=== PATIENT | female | born 1975 | race Caucasian/White ===

== ENCOUNTER 2024-04-16 15:48 | Outpatient (CLI) | payer MEDICAID, SELFPAY ==
--- NOTE | 2024-04-16 08:52 | DI.RAD_ITS ---
Exam(s) XR KNEE LT 4V AP,LAT,SEBASTIAN,PAT EXAM: XR KNEE LT 4V AP,LAT,SEBASTIAN,PAT CLINICAL HISTORY: left knee pain. TECHNIQUE: 2D digital imaging was performed. COMPARISON: CR DX Knee 3 View Left with Standing View - [id number] from 02/24/2019 DX DX Knee 3 View Left with Standing View - [id number] from 10/25/2020 DX DX Knee 3 View Left with Standing View - [id number] from 07/05/2022 FINDINGS: 3 views There is no evidence of fracture. Small joint effusion is noted. There are significant degenerative changes in the right knee again noted. Slight further increase in degenerative change noted in the medial lateral compartments. On the weight-bearing view there appe ars to be [id number] narrowing in the medial compartment at this time. IMPRESSION: Further progression of degenerative change. No fracture. Joint effusion noted. DATA REPOSITORY: RADIATION DOSE DELIVERED:
== END 2024-04-16 15:49 | disposition home or self-care (01) ==
LOC: DIORS 15:48
PROVIDERS: Visit Provider Student in an Organized Health Care Education/Training Program
DX: M25.562 Pain in left knee (principal)
CPT/HCPCS: 73564

== ENCOUNTER 2024-09-17 10:25 | Outpatient (CLI) | payer MEDICAID, SELFPAY ==
[2024-09-17 11:00] VITALS: BP 153/87; PULSE 74; RESP 20; TEMP 36.7; O2SAT 100
[2024-09-17 11:21] VITALS: O2SAT 100
[2024-09-17 11:25] VITALS: O2SAT 100
[2024-09-17 11:30] VITALS: O2SAT 100
[2024-09-17 11:35] VITALS: O2SAT 100
--- NOTE | 2024-09-17 11:44 | DI.RAD_ITS ---
Exam(s) XR PAIN CLINIC FLUORO JOINT IN EXAM: XR PAIN CLINIC FLUORO JOINT IN CLINICAL HISTORY: DX: Knee Osteoarthritis TECHNIQUE: 2D and realtime digital imaging was performed. CONTRAST MATERIAL: Refer to procedure report. COMPARISON: No exams were available for comparison FINDINGS: Fluoroscopy was provided for Dr. Mccallum during the performance of a left genicular nerve block. Fifi brown refer to the procedure report for complete details. Ka,r=4.85 mGy IMPRESSION: RADIATION DOSE DELIVERED: 0.0 0.0 0
[2024-09-17] MEDS: Bupivacaine 0.5% Pres-Free 10 ML VIAL IJ (11:49)
[2024-09-17] MEDS: Nerve Block Tray 1 EACH MC (11:49)
[2024-09-17] MEDS: Omnipaque 240 MG/ML 50 ML BTL IJ (11:50)
--- NOTE | 2024-09-17 12:33 | PDOC.PAIN ---
Date of service: 09/17/24 Time of Service: 12:33 Pain Managment Procedure Note Procedure Note Procedure Note: PROCEDURE NOTE LEFT GENICULAR NERVE BLOCKS Date of Service: September 17, 2024 Patient: SYDNI OLIVERA Provider: Rashid Mccallum DO, MPH SYDNI OLIVERA has been referred to the [facility] for Left genicular nerve block. Pre-operative diagnosis: Pain in left knee M25.562 Post-operative diagnosis: Same Pre-Procedure Pain: VAS=7/10 COMMENTS: I previously evaluated her in the clinic PROCEDURE: 1. Block of the Superolateral genicular branch from the vastus lateralis 2. Block of the Superomedial genicular branch from the vastus medialis 3. Block of the Inferomedial genicular branch from the saphenous nerve 4. Block of the Terminal branch of the nerve vastus intermedius SYDNI was interviewed and the medical record reviewed. There were no medical, pharmacologic, radiographic or other structural contraindications to attempting fluoroscopically guided Left genicular nerve block. Risks and potential side effects as well as potential benefit of the procedure were reviewed with SYDNI OLIVERA , and the patient's voiced concerns were addressed. After I believed that the patient was completely informed, the printed consent form was signed. Standard time-out procedure was performed. After a thorough Chlorhexadine preparation of the skin and draping the skin entry points for approaching Left superolateral genicular nerve, the superomedial genicular nerve, nerve of the vastus intermedius and the inferomedial genicular was identified under the most advantageous fluoroscopic view and marked. Next, 3.5 25G spinal needle was advanced to os at the location of the specific nerve root using fluoroscopic guidance. Next 0.5 cc of 0.5% Bupivacain was injected at each site. There was no unusual discomfort expressed by SYDNI. The needles were withdrawn without difficulty. SYDNI was observed and was without hemodynamic, neurologic, or allergic reactions.? Fluoroscopic images were digitally archived. SYDNI's vital signs were stable throughout the procedure and were as recorded in the docflowsheet by the nursing staff. If given, dosages of intravenous drugs for anxiolysis and analgesia were documented in MAR. Follow up plans and appointments were discussed. SYDNI was instructed to keep careful note of how the usual pain was modified by these injections. Specifically, SYDNI was asked to keep a pain diary for the next 4 hours using a numeric pain scale of 0-10 and report these results. Post procedure instruction was given as documented in nursing documentation and having met discharge criteria, SYDNI was discharged from the [facility]. COMMENTS: No apparent complications. Post-procedure pain: VAS= 1/10. SYDNI will call back with 0-4 hour post-procedure pain scores. I personally completed the entire procedure. RASHID MCCALLUM DO, MPH ABPM&R - Subspecialty board certification in Pain Medicine [facility]
== END 2024-09-17 10:26 | disposition home or self-care (01) ==
LOC: PC 10:25
PROVIDERS: Visit Provider Preventive Medicine Occupational Medicine
DX: M25.562 Pain in left knee (principal)
CPT/HCPCS: 64454; 77002; J0665; Q9967

== ENCOUNTER 2025-07-22 07:01 | Outpatient (CLI) | payer MEDICAID, SELFPAY ==
[2025-07-22] VITALS (13 sets, daily range): BP systolic 113–193; BP diastolic 44–95; PULSE 60–107; RESP 15–26; TEMP 36.6; O2SAT 71–100
[2025-07-22] MEDS: fentaNYL 100 MCG/2 ML VIAL IJ ×3 (08:20→08:40)
[2025-07-22] MEDS: Midazolam 2 MG/2 ML VIAL IVP (08:20)
[2025-07-22] MEDS: Lactated Ringers 500 ML 30 ML IV (08:37)
--- NOTE | 2025-07-22 09:01 | DI.RAD_ITS ---
Exam(s) XR PAIN CLINIC FLUORO JOINT IN EXAM: XR PAIN CLINIC FLUORO JOINT IN CLINICAL HISTORY: DX: Left Knee Osteoarthritis TECHNIQUE: 2D and realtime digital imaging was performed. CONTRAST MATERIAL: Refer to procedure report. COMPARISON: No exams were available for comparison FINDINGS: Fluoroscopy was provided for Dr. Mccallum during the performance of a left genicular radiofrequency ablation. Please refer to the procedure report for complete details. Ka,r=5.26 mGy IMPRESSION: RADIATION DOSE DELIVERED: 0.0 0.0 0
--- NOTE | 2025-07-22 09:03 | PDOC.PAIN ---
Date of service: 07/22/25 Time of Service: 09:03 Pain Managment Procedure Note Procedure Note Procedure Note: PROCEDURE NOTE LEFT GENICULAR NERVE RADIOFREQUENCY ABLATION Date of Service: July 22, 2025 Patient: SYDNI OLIVERA Provider: Suzy Nelson DO, MPH SYDNI OLIVERA has been referred to the [facility] for Left genicular nerve radiofrequency ablation with the [employer] machine. Pre-operative diagnosis: Pain in left knee M25.562 Post-operative diagnosis: Same Pre-Procedure Pain: VAS=6/10 (with standing) Comments: Previous genicular nerve blocks to the Left knee. PROCEDURE: 1. Superolateral genicular branch from the vastus lateralis 2. Superomedial genicular branch from the vastus medialis 3. Inferomedial genicular branch from the saphenous nerve 4. Terminal branch of the nerve vastus intermedius SYDNI was interviewed and the medical record reviewed. There were no medical, pharmacologic, radiographic or other structural contraindications to attempting fluoroscopically guided Left genicular nerve radiofrequency ablation. Risks and potential side effects as well as potential benefit of the procedure were reviewed with SYDNI OLIVERA , and the patient's voiced concerns were addressed. After I believed that the patient was completely informed, the printed consent form was signed. Standard time-out procedure was performed. SYDNI OLIVERA was brought into brought to the procedure room and placed on the fluoroscopy table in a comfortable supine position and automated blood pressure cuff and pulse oximeter applied. A grounding pad was placed on the left ankle. The place for needle placement was obtained by manual palpation with radiographic confirmation. The skin entry points for approaching Left superolateral genicular nerve, the superomedial genicular nerve, nerve of the vastus intermedius and the inferomedial genicular was identified under the most advantageous fluoroscopic view and marked. Following thorough Chlorhexadine preparation of the skin and draping, 1% lidocaine infiltration of the skin entry point and subcutaneous tissues was accomplished using a 1.5 25G needle. Next, the 17G 100 mm radiofrequency cannula needle with a 4mm active tip was advanced to os at the location of the specific nerve roots (4) using fluoroscopic guidance. Next, motor testing was performed and no abnormal findings were found. Next, 1 cc of 2% Lidocaine was injected at each site after negative aspiration. The lesion was then created with 80 degrees Celsius for 2 minutes and 30 seconds each. 1/4 cc of Depo-Medrol (40 mg/cc) was then injected at each site followed by 1 cc of 0.5% Bupivacaine as the needle was withdrawn. There was no unusual discomfort expressed by SYDNI. The needles were withdrawn without difficulty. SYDNI was observed and was without hemodynamic, neurologic, or allergic reactions.? Fluoroscopic images were digitally archived. SYDNI's vital signs were stable throughout the procedure and were as recorded in the docflowsheet by the nursing staff. If given, dosages of intravenous drugs for anxiolysis and analgesia were documented in MAR. POST PROCEDURE EVALUATION: IMPRESSION: 1. Medication given is documented in the MAR 2. Follow up plan: SYDNI to contact [facility] as needed. This procedure may be repeated if the patient achieves at least 50% improvement in pain and/or function for at least 6 months. 3. Estimated Blood Loss: <5ml 4. Fluoroscopy time: Documented in the EMR Follow up plans and appointments were discussed with SYDNI. Post procedure instruction was given as documented in nursing documentation and having met discharge criteria, SYDNI was discharged from the [facility]. This advanced procedure uses cooled radiofrequency energy to safely target the sensory nerves responsible for sending pain signals.1 A radiofrequency generator transmits a small current of Radiofrequency energy through an insulated electrode, or probe, placed within tissue. Ionic heating, produced by the friction of charged molecules, thermally deactivates the nerves responsible for sending pain signals to the brain. Radiofrequency energy heats and cools the tissue at the site of pain. Unlike other Radiofrequency procedures, Coolief circulates water through the device while heating nervous tissue to create a larger treatment area, increasing the opportunity to help with pain. This combination targets the pain-transmitting nerves without excessive heating, leading to pain relief. COMMENTS: No apparent complications. Post-procedure pain: VAS= 0/10 (standing). Marcos WJ1, Kumar SJ, Jitendra JG, Angelia JG, Gary AGUILAR, Park PH, Simone JW. Radiofrequency treatment relieves chronic knee osteoarthritis pain: a double-blind randomized controlled trial. Pain. 2010;152(3):481-7. doi: 10.1016/j.pain.2010.09.029. Pratima S1, Alfonzo ON2, Sydni Y3, ?zl?lerden P2, Rusty U1, Jame ?m?rl? I. Which one is more effective for the clinical treatment of chronic pain in knee osteoarthritis: radiofrequency neurotomy of the genicular nerves or intra-articular injection? Int J Rheum Dis. 2016 Jul 06. I personally completed the entire procedure. SUZY NELSON DO, MPH ABPM&R - Subspecialty board certification in Pain Medicine [facility] Coding Conscious Sedation used for procedure: Yes CPT Codes: Genicular 3-4 Nerve RFA - 99867O ([id number]~G) Additional Codes: Date of Service (48648) Date of service: 07/22/25 Diagnoses: left knee osteoarthritis
[2025-07-22] MEDS: Lidocaine 2% Pres-Free 5 ML VIAL IJ (09:05)
[2025-07-22] MEDS: methylPREDNISolone ACETATE 40 MG/ML VIAL IJ (09:05)
[2025-07-22] MEDS: Bupivacaine 0.5% Pres-Free 10 ML VIAL IJ (09:06)
[2025-07-22] MEDS: Nerve Block Tray 1 EACH MC (09:06)
== END 2025-07-22 07:02 | disposition home or self-care (01) ==
LOC: PC 07:02
PROVIDERS: Visit Provider Preventive Medicine Occupational Medicine
DX: M25.562 Pain in left knee (principal)
CPT/HCPCS: 64624; 77002; J0665; J1010; J2250; J3010